=== PATIENT | male | born 1950 | race Caucasian/White ===

== ENCOUNTER 2021-10-19 15:52 | Emergency (ER) | payer MEDICARE, OTHER ==
[2021-10-19 16:50] LABS: BASOPHIL 0.4 % (0-2); EOSINOPHIL 1.4 % (0-7); HCT 42.4 % (42.0-52.0); HGB 15.2 g/dl (13.2-18.0); LYMPHOCYTE 28.2 % (15-48); MCH 30.5 pg (25.0-31.0); MCHC 35.8 g/dL (32.0-36.0); MCV 85.1 fL (78.0-100.0); MONOCYTE 8.6 % (0-12); MPV 10.7 fL (6.0-9.5); NEUTROPHIL 61.2 % (41-80); NRBC 0; PLT 164 K/uL (150-400); RBC 4.98 M/uL (4.70-6.00); RDW 11.6 % (11.5-14.0); WBC 5.7 K/uL (4.0-10.5)
[2021-10-19 16:59] LABS: BILIRUBIN NEGATIVE (NEGATIVE); BLOOD NEGATIVE Ery/uL (NEGATIVE); CLARITY CLEAR (CLEAR); COLOR YELLOW (YELLOW); GLUCOSE (U) NORMAL (NORMAL); LEUKOCYTES NEGATIVE Leu/uL (NEGATIVE); NITRITE NEGATIVE (NEGATIVE); PROTEIN NEGATIVE (NEGATIVE)
[2021-10-19 17:22] LABS: ALBUMIN 3.8 g/dL (3.4-5.0); BILIRUBIN - TOTAL 0.9 mg/dL (0.2-1.0); BUN/CREAT RATIO (CALC) 12.5 RATIO; CREATININE 0.72 mg/dL (0.67-1.17); POTASSIUM 3.9 mmol/L (3.5-5.1); TOTAL PROTEIN 6.8 g/dL (6.4-8.2)
[2021-10-19] MEDS ORDERED: ONDANSETRON ODT4 MG PO (20:21)
== END 2021-10-19 20:38 | disposition home or self-care (01) ==
LOC: FER 15:52
PROVIDERS: Nurse Practitioner Family
DX: R10.84 Generalized abdominal pain (principal); R11.2 Nausea with vomiting, unspecified; R19.7 Diarrhea, unspecified; I10 Essential (primary) hypertension; Z88.0 Allergy status to penicillin
CPT/HCPCS: 36415; 80053; 81003; 82150; 83690; 85025; J7030; Q9967